=== PATIENT | female | born 1980 | race African-American/Black ===

== ENCOUNTER 2017-03-24 16:15 | Emergency (ER) | payer OTHER ==
[~2017-03-24] VITALS: Ht 162.6 cm; Wt 59.9 kg
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
== END 2017-03-24 20:24 | disposition home or self-care (01) ==
LOC: CED 16:15 → CFTX 16:15
DX: S50.01XA Contusion of right elbow, initial encounter (principal); S20.319A Abrasion of unspecified front wall of thorax, initial encounter; F90.9 Attention-deficit hyperactivity disorder, unspecified type; F41.9 Anxiety disorder, unspecified; Z23 Encounter for immunization; V49.40XA Driver injured in collision with unspecified motor vehicles in traffic accident, initial encounter; Y92.410 Unspecified street and highway as the place of occurrence of the external cause
CPT/HCPCS: 71020; 73060; 84703; 90471; 90715; 99283